=== PATIENT | female | born 1990 | race Caucasian/White ===

== ENCOUNTER 2016-08-30 09:57 | Emergency (ER) | payer BC ==
[~2016-08-30] VITALS: Ht 170.2 cm; Wt 61.7 kg
[2016-08-30 10:10] VITALS: BP 96/60
== END 2016-08-30 11:32 | disposition home or self-care (01) ==
LOC: ER 10:02
DX: O23.41 Unspecified infection of urinary tract in pregnancy, first trimester (principal); O88.211 Thromboembolism in pregnancy, first trimester; J32.0 Chronic maxillary sinusitis; J45.909 Unspecified asthma, uncomplicated; Z3A.08 8 weeks gestation of pregnancy

== ENCOUNTER 2016-10-11 20:24 | Emergency (ER) | payer BC ==
[~2016-10-11] VITALS: Ht 170.2 cm; Wt 62.6 kg
[2016-10-11 20:46] VITALS: BP 109/58
== END 2016-10-11 22:48 | disposition home or self-care (01) ==
LOC: ER 20:26
DX: J32.0 Chronic maxillary sinusitis (principal); J45.909 Unspecified asthma, uncomplicated

== ENCOUNTER 2017-01-09 13:43 | Emergency (ER) | payer BC ==
[~2017-01-09] VITALS: Ht 170.2 cm; Wt 65.8 kg
[2017-01-09 13:55] VITALS: BP 108/72
[2017-01-09 14:16] LABS: Urine Bacteria FEW /hpf (None Seen); Urine Blood Negative /uL (Negative); Urine Mucus FEW (None Seen); Urine Specific Gravity 1.012 (1.001-1.035); Urine WBC 10 /hpf (0 - 5)
[2017-01-09 15:44] LABS: Basophils # (auto) 0.1 uL; Basophils % (auto) 1.1 % (0.0-2.0); Eosinophils # (auto) 0.4 uL; Eosinophils % (auto) 3.5 % (0.0-7.0); Hematocrit 34.8 % (36.0-46.0); Hemoglobin 11.6 g/dL (12.2-16.2); Lymphocytes # (auto) 1.8 uL; Lymphocytes % (auto) 16.5 % (10.0-50.0); Mean Corpuscular Hemoglobin 30.9 pg (28.0-32.0); Mean Corpuscular Hgb Conc. 33.3 g/dL (32.0-36.0); Mean Corpuscular Volume 92.8 fL (80.0-100.0); Monocytes # (auto) 0.6 uL; Monocytes % (auto) 5.5 % (0.0-12.0); Neutrophils # (auto) 7.8 uL; Neutrophils % (auto) 73.4 % (37.0-80.0); Platelet Count (auto) 254 10^3/uL (140-450); Red Blood Cells 3.75 10^6/uL (4.0-5.20); Red Cell Distribution Width 14.1 % (11.8-14.3); White Blood Cell 10.6 10^3/uL (4.4-10.8)
== END 2017-01-09 18:20 | disposition left against medical advice (07) ==
LOC: ER 13:43
DX: R07.89 Other chest pain (principal); R00.2 Palpitations; Z53.21 Procedure and treatment not carried out due to patient leaving prior to being seen by health care provider
CPT/HCPCS: 36415; 81001; 83880; 84443; 85025; 93005

== ENCOUNTER 2020-11-04 13:46 | Emergency (ER) | payer BC ==
[~2020-11-04] VITALS: Ht 170.2 cm; Wt 83.9 kg
[2020-11-04 15:23] LABS: Basophils # (auto) 0.1 10 ^3/uL (0-0.2); Basophils % (auto) 0.5 % (0.0-2.0); Eosinophils # (auto) 0.5 10 ^3/uL (0-0.8); Eosinophils % (auto) 4.4 % (0.0-7.0); Hematocrit 38.7 % (36.0-46.0); Hemoglobin 12.7 g/dL (12.2-16.2); Lymphocytes % (auto) 16.3 % (10.0-50.0); Mean Corpuscular Hemoglobin 29.2 pg (28.0-32.0); Mean Corpuscular Hgb Conc. 32.9 g/dL (32.0-36.0); Monocytes # (auto) 0.5 10 ^3/uL (0-1.3); Monocytes % (auto) 3.9 % (0.0-12.0); Neutrophils % (auto) 74.9 % (37.0-80.0); Red Blood Cells 4.35 10^6/uL (4.0-5.20); Red Cell Distribution Width 13.9 % (11.8-14.3)
[2020-11-04] MEDS ORDERED: PANTOPRAZOLE 40 MG TAB PO ONE (15:30)
[2020-11-04] MEDS ORDERED: metroNIDAZOLE 500 MG TAB PO ONE (15:30)
[2020-11-04 15:40] LABS: BUN/Creatinine Ratio 11.8
[2020-11-04 15:43] LABS: Bilirubin, Total 0.6 mg/dL (0.2-1.0); Total Protein 7.9 g/dL (6.4-8.2)
[2020-11-04 17:20] VITALS: BP 103/58
== END 2020-11-04 17:57 | disposition home or self-care (01) ==
LOC: ER 13:46
DX: K29.70 Gastritis, unspecified, without bleeding (principal); J45.909 Unspecified asthma, uncomplicated
CPT/HCPCS: 36415; 74176; 80053; 83690; 85025

== ENCOUNTER 2020-11-15 23:28 | Inpatient (IN) | payer BC ==
[~2020-11-15] VITALS: Ht 167.6 cm; Wt 85.6 kg
[2020-11-16 00:10] LABS: Basophils # (auto) 0.1 10 ^3/uL (0-0.2); Basophils % (auto) 0.6 % (0.0-2.0); Eosinophils # (auto) 0.4 10 ^3/uL (0-0.8); Eosinophils % (auto) 3.3 % (0.0-7.0); Hemoglobin 10.4 g/dL (12.2-16.2); Lymphocytes # (auto) 1.9 10 ^3/uL (0.4-5.4); Lymphocytes % (auto) 15.6 % (10.0-50.0); Mean Corpuscular Hgb Conc. 33.5 g/dL (32.0-36.0); Mean Corpuscular Volume 89.4 fL (80.0-100.0); Monocytes # (auto) 0.6 10 ^3/uL (0-1.3); Monocytes % (auto) 4.7 % (0.0-12.0); Neutrophils # (auto) 9.1 10 ^3/uL (1.6-8.6); Neutrophils % (auto) 75.8 % (37.0-80.0); Red Blood Cells 3.47 10^6/uL (4.0-5.20); Red Cell Distribution Width 13.2 % (11.8-14.3)
[2020-11-16 00:18] LABS: Calcium 7.8 mg/dL (8.5-10.1); Potassium 4.6 mmol/L (3.5-5.1)
[2020-11-16 00:20] LABS: BUN/Creatinine Ratio 28.2
[2020-11-16 00:23] LABS: Bilirubin, Total 0.3 mg/dL (0.2-1.0); Total Protein 6.2 g/dL (6.4-8.2)
[2020-11-16 00:30] LABS: INR 1.19 (0.9-1.15); Partial Thromboplastin Time 20.6 sec (23.6-33.0)
[2020-11-16 01:36] LABS: Urine Bacteria FEW /hpf (None Seen); Urine Blood 1+ /uL (Negative); Urine Mucus FEW (None Seen); Urine Specific Gravity 1.029 (1.001-1.035); Urine WBC 29 /hpf (0 - 5)
[2020-11-16] MEDS ORDERED: IOHEXOL 300 MG/ML 100ML BOTTLE IJ ONE (01:42)
[2020-11-16] MEDS ORDERED: cefTRIAXone 1GM/50ML D5W 50 ML IV ONE (05:00)
[2020-11-16] MEDS ORDERED: CALCIUM GLUC 1,000mg/50ml-NS 50 ML IV ONE (05:00)
[2020-11-16] MEDS ORDERED: PANTOPRAZOLE 40 MG/10 ML VIAL INJ IV ONE (05:00)
[2020-11-16 05:58] LABS: Amphetamine Screen, Urine NEGATIVE (NEGATIVE); Barbiturate Scree,Urine NEGATIVE (NEGATIVE); Benzodiazephine Screen, Urine NEGATIVE (NEGATIVE); Cannabinoid Screen, Urine NEGATIVE (NEGATIVE); Cocaine Screen, Urine NEGATIVE (NEGATIVE); Opiate Scree,Urine NEGATIVE (NEGATIVE); Phencyclidine Screen, Urine NEGATIVE (NEGATIVE)
[2020-11-16] MEDS ORDERED: ONDANSETRON HCL 4 MG/2 ML VIAL IV PRN (06:30)
[2020-11-16] MEDS ORDERED: HYDROcodone-ACET 5/325MG TAB PO PRN (06:30)
[2020-11-16] MEDS ORDERED: ALBUMIN 25% 50 ML IV ONE (06:30)
[2020-11-16] MEDS: SOD CHL 0.45% 1,000 ML IV SCH (06:57)
[2020-11-16] MEDS ORDERED: NITROGLYCERIN 0.4 MG SL TAB SL PRN (07:00)
[2020-11-16] MEDS ORDERED: MORPHINE SULFATE INJECTION 2 MG/ML SYRG IV PRN (07:00)
[2020-11-16 07:07] LABS: Basophils # (auto) 0 10 ^3/uL (0-0.2); Basophils % (auto) 0.5 % (0.0-2.0); Eosinophils # (auto) 0.4 10 ^3/uL (0-0.8); Eosinophils % (auto) 4.7 % (0.0-7.0); Hematocrit 28.4 % (36.0-46.0); Hemoglobin 9.9 g/dL (12.2-16.2); Lymphocytes # (auto) 1.9 10 ^3/uL (0.4-5.4); Lymphocytes % (auto) 21.5 % (10.0-50.0); Mean Corpuscular Hemoglobin 31.6 pg (28.0-32.0); Mean Corpuscular Hgb Conc. 34.8 g/dL (32.0-36.0); Mean Corpuscular Volume 90.9 fL (80.0-100.0); Monocytes # (auto) 0.4 10 ^3/uL (0-1.3); Monocytes % (auto) 4.5 % (0.0-12.0); Neutrophils % (auto) 68.8 % (37.0-80.0); Nucleated Red Blood Cells % 0.1 %; Red Blood Cells 3.12 10^6/uL (4.0-5.20); Red Cell Distribution Width 13.5 % (11.8-14.3); White Blood Cell 8.8 10^3/uL (4.4-10.8)
[2020-11-16 07:29] LABS: Albumin 2.9 g/dL (3.4-5.0); Calcium 8.3 mg/dL (8.5-10.1); Potassium 4.5 mmol/L (3.5-5.1)
[2020-11-16 07:34] LABS: Bilirubin, Total 0.2 mg/dL (0.2-1.0); Total Protein 6.1 g/dL (6.4-8.2)
[2020-11-16] MEDS: cefTRIAXone 1GM/50ML D5W 50 ML IV SCH (09:08)
[2020-11-16] MEDS ORDERED: PANTOPRAZOLE 40 MG/10 ML VIAL INJ IV SCH (10:00)
[2020-11-16 12:09] VITALS: BP 96/50
[2020-11-16] MEDS: ACETAMINOPHEN 325 MG TAB PO PRN ×2 (12:42→13:45)
[2020-11-16] MEDS ORDERED: PAR20T PO (12:48)
[2020-11-16] MEDS ORDERED: LORA-622 PO (12:48)
[2020-11-16] MEDS ORDERED: TRAZ1TAB12 PO (12:48)
[2020-11-16] MEDS ORDERED: QUET50TA PO (12:48)
[2020-11-16 13:00] VITALS: BP 101/65
[2020-11-16] MEDS ORDERED: LAMO100T44 PO (13:49)
[2020-11-16 17:00] VITALS: BP 102/64
[2020-11-16] MEDS: SUCRALFATE 1 GM/10 ML ORAL SUSP PO SCH ×2 (17:31→21:46)
[2020-11-16] MEDS: traZODone HCL 50 MG TAB PO SCH (21:46)
[2020-11-16] MEDS: PANTOPRAZOLE 40 MG/10 ML VIAL INJ IV SCH (21:47)
[2020-11-16 22:00] VITALS: BP 86/52
[2020-11-17 05:00] VITALS: BP 97/55
[2020-11-17 05:20] LABS: Basophils # (auto) 0 10 ^3/uL (0-0.2); Basophils % (auto) 0.5 % (0.0-2.0); Eosinophils # (auto) 0.6 10 ^3/uL (0-0.8); Eosinophils % (auto) 10.6 % (0.0-7.0); Hematocrit 27.5 % (36.0-46.0); Hemoglobin 9.3 g/dL (12.2-16.2); Lymphocytes # (auto) 1.8 10 ^3/uL (0.4-5.4); Lymphocytes % (auto) 34.1 % (10.0-50.0); Mean Corpuscular Hemoglobin 30.5 pg (28.0-32.0); Mean Corpuscular Hgb Conc. 33.8 g/dL (32.0-36.0); Mean Corpuscular Volume 90.1 fL (80.0-100.0); Monocytes # (auto) 0.3 10 ^3/uL (0-1.3); Monocytes % (auto) 5.5 % (0.0-12.0); Neutrophils # (auto) 2.7 10 ^3/uL (1.6-8.6); Neutrophils % (auto) 49.3 % (37.0-80.0); Nucleated Red Blood Cells % 0.1 %; Red Blood Cells 3.06 10^6/uL (4.0-5.20); Red Cell Distribution Width 13.8 % (11.8-14.3); White Blood Cell 5.4 10^3/uL (4.4-10.8)
[2020-11-17 05:52] LABS: Potassium 4.2 mmol/L (3.5-5.1)
[2020-11-17 05:56] LABS: Albumin 3.1 g/dL (3.4-5.0); BUN/Creatinine Ratio 15.2; Calcium 8.5 mg/dL (8.5-10.1)
[2020-11-17 05:59] LABS: Bilirubin, Total 0.4 mg/dL (0.2-1.0); Total Protein 6.1 g/dL (6.4-8.2)
[2020-11-17] MEDS: SOD CHL 0.45% 1,000 ML IV SCH ×2 (06:13→09:10)
[2020-11-17] MEDS: SUCRALFATE 1 GM/10 ML ORAL SUSP PO SCH ×4 (06:13→21:20)
[2020-11-17] MEDS: PARoxetine 20 MG TAB PO SCH (09:19)
[2020-11-17] MEDS: PANTOPRAZOLE 40 MG/10 ML VIAL INJ IV SCH ×2 (09:19→21:20)
[2020-11-17] MEDS: lamoTRIgine 25 MG TAB PO SCH (09:19)
[2020-11-17] MEDS: cefTRIAXone 1GM/50ML D5W 50 ML IV SCH (09:19)
[2020-11-17] MEDS ORDERED: MIDAZOLAM HCL 5 MG/ML-1ML VIAL ONE (14:05)
[2020-11-17] MEDS ORDERED: diphenhdrAMINE HCL 50 MG/1 ML VL ONE (14:05)
[2020-11-17] MEDS ORDERED: LIDOCAINE VISCOUS 2% 15ML UD ONE ×2 (14:05→16:17)
[2020-11-17] MEDS ORDERED: SODIUM CHLORIDE LOCK 10 ML ONE (14:05)
[2020-11-17] MEDS ORDERED: fentaNYL CITRATE 100 MCG/2 ML VL ONE (14:06)
[2020-11-17] MEDS: MIDAZOLAM HCL 5 MG/ML-1ML VIAL ONE ×3 (17:31→17:38)
[2020-11-17] MEDS: diphenhdrAMINE HCL 50 MG/1 ML VL ONE ×2 (17:31→17:35)
[2020-11-17] MEDS: fentaNYL CITRATE 100 MCG/2 ML VL ONE ×3 (17:31→17:38)
[2020-11-17] MEDS ORDERED: IRON SUCROSE COMPLEX 200 MG in SODIUM CHL 0.9% 100 ML IV ONE (18:00)
[2020-11-17] MEDS ORDERED: SODIUM FERR GLUC 125 MG in NS 100 ML IV ONE (18:00)
[2020-11-17 18:20] VITALS: BP 109/67
[2020-11-17] MEDS: traZODone HCL 50 MG TAB PO SCH (21:20)
[2020-11-17 22:00] VITALS: BP 112/72
[2020-11-18 06:14] VITALS: BP 174/83
[2020-11-18] MEDS: SUCRALFATE 1 GM/10 ML ORAL SUSP PO SCH ×2 (06:20→11:30)
[2020-11-18] MEDS: cefTRIAXone 1GM/50ML D5W 50 ML IV SCH (07:36)
[2020-11-18 09:00] VITALS: BP 98/53
[2020-11-18] MEDS: PANTOPRAZOLE 40 MG/10 ML VIAL INJ IV SCH (09:54)
[2020-11-18] MEDS: PARoxetine 20 MG TAB PO SCH (09:54)
[2020-11-18] MEDS: lamoTRIgine 25 MG TAB PO SCH (09:55)
[2020-11-18] MEDS ORDERED: SUCR1SUS10 PO (10:20)
[2020-11-18] MEDS ORDERED: FERR-7 PO (10:20)
[2020-11-18] MEDS ORDERED: PANT40TA2 PO (10:20)
[2020-11-18 17:40] LABS: % Iron Saturation 21.5 % (15-50)
== END 2020-11-18 12:48 | disposition home or self-care (01) | DRG 378 ==
LOC: EDBD 23:28 → ER 23:28 → OVERFLOW 11-16 06:48 → WEST WING 11-16 10:53
PROVIDERS: ADMIT Nurse Practitioner Family; ATTEND Hospitalist
PROC: 0DB68ZX Excision of Stomach, Via Natural or Artificial Opening Endoscopic, Diagnostic (ICD-10-PCS; 2020-11-17)
PROC: 0DB98ZX Excision of Duodenum, Via Natural or Artificial Opening Endoscopic, Diagnostic (ICD-10-PCS; principal; 2020-11-17 17:21)
DX: K29.01 Acute gastritis with bleeding (principal); N30.01 Acute cystitis with hematuria; Z20.822 Contact with and (suspected) exposure to COVID-19; E83.51 Hypocalcemia; J45.909 Unspecified asthma, uncomplicated; Z87.891 Personal history of nicotine dependence; F32.9 Major depressive disorder, single episode, unspecified; F41.9 Anxiety disorder, unspecified; K44.9 Diaphragmatic hernia without obstruction or gangrene; D64.9 Anemia, unspecified
CPT/HCPCS: 36415; 43239; 74177; 80053; 80307; 81001; 83036; 83540; 83550; 84702; 85025; 85610; 85730; 87086; 87088; 87426; 96365; 96367; 96375; C9113; G0378; J0696; J2250

== ENCOUNTER 2022-04-12 15:41 | Emergency (ER) | payer BC ==
[~2022-04-12] VITALS: Ht 170.2 cm; Wt 84.0 kg
[~2022-04-12 15:41] MED LIST: FERR-7 PO; LAMO100T44 PO; LORA-622 PO; PANT40TA2 PO; PAR20T PO; QUET50TA PO; SUCR1SUS10 PO; TRAZ1TAB12 PO
[2022-04-12 16:31] LABS: Basophils # (auto) 0 10 ^3/uL (0-0.2); Basophils % (auto) 0.2 % (0.0-2.0); Eosinophils # (auto) 0.4 10 ^3/uL (0-0.8); Eosinophils % (auto) 3.5 % (0.0-7.0); Hematocrit 41.4 % (36.0-46.0); Hemoglobin 13.5 g/dL (12.2-16.2); Lymphocytes # (auto) 1.5 10 ^3/uL (0.4-5.4); Lymphocytes % (auto) 13.3 % (10.0-50.0); Mean Corpuscular Hemoglobin 29.6 pg (28.0-32.0); Mean Corpuscular Hgb Conc. 32.7 g/dL (32.0-36.0); Mean Corpuscular Volume 90.7 fL (80.0-100.0); Monocytes # (auto) 0.5 10 ^3/uL (0-1.3); Monocytes % (auto) 4.7 % (0.0-12.0); Neutrophils # (auto) 8.6 10 ^3/uL (1.6-8.6); Neutrophils % (auto) 78.3 % (37.0-80.0); Nucleated Red Blood Cells % 0.1 %; Red Blood Cells 4.56 10^6/uL (4.0-5.20); Red Cell Distribution Width 14.2 % (11.8-14.3)
[2022-04-12 16:40] LABS: Albumin 4.5 g/dL (3.4-5.0); Calcium 9.2 mg/dL (8.5-10.1); Potassium 4.4 mmol/L (3.5-5.1)
[2022-04-12 16:45] LABS: BUN/Creatinine Ratio 10.3; Bilirubin, Total 0.5 mg/dL (0.2-1.0); Total Protein 7.6 g/dL (6.4-8.2)
[2022-04-12 18:42] VITALS: BP 103/67
[2022-04-12 21:41] LABS: Urine Bacteria NONE SEEN /hpf (None Seen); Urine Blood TRACE /uL (Negative); Urine Mucus FEW (None Seen); Urine Specific Gravity 1.016 (1.001-1.035); Urine WBC 4 /hpf (0 - 5)
== END 2022-04-12 18:44 | disposition home or self-care (01) ==
LOC: ER 15:41
DX: R07.89 Other chest pain (principal); J45.909 Unspecified asthma, uncomplicated; Z79.899 Other long term (current) drug therapy
CPT/HCPCS: 36415; 71046; 80053; 81001; 84484; 85025; 93005

== ENCOUNTER → 2023-09-13 | Outpatient (CLI) | payer BC ==
[~2023-09-13] MED LIST changes: -SUCR1SUS10 PO; +SUCR1SUS26 PO
[2023-09-13 09:59] LABS: Basophils # (auto) 0 10 ^3/uL (0-0.2); Basophils % (auto) 0.3 % (0.0-2.0); Eosinophils # (auto) 0.6 10 ^3/uL (0-0.8); Eosinophils % (auto) 9.7 % (0.0-7.0); Hematocrit 40.2 % (36.0-46.0); Hemoglobin 13.6 g/dL (12.2-16.2); Lymphocytes # (auto) 1.5 10 ^3/uL (0.4-5.4); Mean Corpuscular Hemoglobin 30.7 pg (28.0-32.0); Mean Corpuscular Hgb Conc. 33.8 g/dL (32.0-36.0); Monocytes # (auto) 0.4 10 ^3/uL (0-1.3); Monocytes % (auto) 5.6 % (0.0-12.0); Neutrophils # (auto) 3.8 10 ^3/uL (1.6-8.6); Neutrophils % (auto) 60.4 % (37.0-80.0); Red Blood Cells 4.42 10^6/uL (4.0-5.20); Red Cell Distribution Width 13.5 % (11.8-14.3); White Blood Cell 6.3 10^3/uL (4.4-10.8)
[2023-09-13 10:14] LABS: INR 1.09 (0.9-1.15); Prothrombin Time 11.5 sec (9.3-11.8)
[2023-09-13 10:32] LABS: Alanine Aminotransferase 25 U/L (7-40); Alkaline Phosphatase 68 U/L (46-116); Anion Gap 4 (5-15); Aspartate Aminotransferase 11 U/L (13-40); Calcium 10.2 mg/dL (8.5-10.1); Carbon Dioxide 28 mmol/L (20-30); Chloride 106 mmol/L (98-107); Glucose 99 mg/dL (74-106); Potassium 4.6 mmol/L (3.5-5.1); Sodium 138 mmol/L (136-145)
[2023-09-13 10:33] LABS: BUN/Creatinine Ratio 12.2 (10.0-20.0); Blood Urea Nitrogen 10 mg/dL (9-23); LDL Cholesterol 104 mg/dL (< 100); Triglycerides 75 mg/dL (< 150)
[2023-09-13 10:34] LABS: Albumin 4.7 g/dL (3.2-4.8); Cholesterol 155 mg/dL (< 200); HDL Cholesterol 47 mg/dL (40-59)
[2023-09-13 10:35] LABS: Bilirubin, Total 0.3 mg/dL (0.2-1.0); Total Protein 7.1 g/dL (5.7-8.2)
[2023-09-13 10:38] LABS: Urine Bacteria FEW /hpf (None Seen); Urine Blood 2+ /uL (Negative); Urine Clarity Clear (Clear); Urine Color Light-Yellow (Yellow); Urine Protein, UAD Negative (Negative); Urine Specific Gravity 1.021 (1.001-1.035); Urine Urobilinogen Normal (Negative); Urine WBC 23 /hpf (0 - 5); Urine pH 6.5 (5.0-9.0)
== END | disposition home or self-care (01) ==
LOC: LAB 09:44
PROVIDERS: ATTEND Internal Medicine
DX: Z13.1 Encounter for screening for diabetes mellitus (principal); Z00.01 Encounter for general adult medical examination with abnormal findings; G43.109 Migraine with aura, not intractable, without status migrainosus; R61 Generalized hyperhidrosis; R94.4 Abnormal results of kidney function studies; D50.0 Iron deficiency anemia secondary to blood loss (chronic); R79.89 Other specified abnormal findings of blood chemistry
CPT/HCPCS: 36415; 80053; 80061; 81001; 83036; 84439; 84443; 85025; 85610; 85730

== ENCOUNTER 2024-01-16 08:52 | Inpatient (IN) | payer BC ==
[~2024-01-16] VITALS: Ht 172.7 cm; Wt 82.1 kg
[~2024-01-16 08:52] MED LIST changes: +NITR-87 PO
[2024-01-16 09:25] VITALS: PULSE 107; RESP 18; O2SAT 98
--- NOTE | 2024-01-16 09:41 | ED.PDOC ---
GI ASSESSMENT HPI Comments 33-year-old female presents to the ED with a chief complaint of rectal bleeding x 2 days. Patient reports that her stool is black in color, soft in texture. Patient is also complaining of nausea and vomiting with bright red blood. Denies any pain at this time. Patient mentions that she drank alcohol this weekend. Chief Complaint: GI Bleed Time Seen by MD: 09:30 Primary Care Provider: FELICIA Carlos Notes: Medications, Allergies Allergies: Coded Allergies: NO KNOWN ALLERGIES (Unverified , 12/29/15) Home Meds Active Scripts Nitrofurantoin Monohydrate Mac (Macrobid) 100 Mg Cap, 100 MG PO BID for 7 Days, #14 CAP Prov:FLAQUITO PALENCIA 10/05/23 Ferrous Sulfate (Iron) 325 Mg Tab, 325 MG PO MWF, #60 TAB Prov:JOHN HOUGH MD 11/18/20 Sucralfate (CARAFATE SUSP) 1 Gm/10 Ml Ss, 10 ML PO QID, #1200 ML 3 Refills Prov:JOHN HOUGH MD 11/18/20 Pantoprazole Sodium Sesquihydr (Protonix) 40 Mg Tab, 40 MG PO BID, #90 TAB Prov:JOHN HOUGH MD 11/18/20 Reported Medications Lamotrigine (Lamotrigine) 100 Mg Tab, 0.5 TAB PO DAILY, #30 TAB 11/16/20 Quetiapine Fumerate (Seroquel) 50 Mg Tab, 0.5 TAB PO HS, #30 TAB 2 Refills 11/16/20 Loratadine (Claritin) 10 Mg Tab, 1 TAB PO PRN, #30 TAB 5 Refills 11/16/20 Paroxetine (PAXIL TABLET) 20 Mg Tb, 1 TAB PO DAILY, #30 TAB 5 Refills 11/16/20 Trazodone Hcl (Trazodone Hcl) 150 Mg Tab, 1 TAB PO HS, #30 TAB 1 Refill 11/16/20 Information Source: Patient Mode of Arrival: Ambulatory Timing: Days Duration: Since onset Prehospital treatment: None Quality: None Vomitus: Bloody Stool: Loose, Black Severity: Moderate Recent: None Recent Hx of: Ulcer Disease Pain Location: Epigastric Past Medical History PAST MEDICAL HISTORY: Anxiety, Asthma, Depression, PUD Surgical History: Denies all surgeries FABRICATION TECHNICIAN History: No Pertinent FABRICATION TECHNICIAN History Family History Family History: No family hx of Cancer, No family hx of Stroke Social History Smoker: Non-Smoker Alcohol: Occasionally Drugs: Denies Drug Use Lives In: Home Constitutional: denies: chills, diaphoresis, fatigue, fever, malaise, sweats, weakness, others EENTM: denies: blurred vision, double vision, ear bleeding, ear discharge, ear drainage, ear pain, ear ringing, eye pain, eye redness, hearing loss, mouth pain, mouth swelling, nasal discharge, nose bleeding, nose congestion, nose pain, photophobia, tearing, throat pain, throat swelling, voice changes, others Respiratory: denies: cough, hemoptysis, orthopnea, SOB at rest, shortness of breath, SOB with excertion, stridor, wheezing, others Cardiovascular: denies: chest pain, dizzy spells, diaphoresis, Dyspnea on exertion, edema, irregular heart beat, left arm pain, lightheadedness, palpitations, PND, syncope, others Gastrointestinal: reports: melena, nausea, vomiting; denies: abdomen distended, abdominal pain, blood streaked bowels, constipated, diarrhea, dysphagia, difficulty swallowing, hematemesis, poor appetite, poor fluid intake, rectal bleeding, rectal pain, others Genitourinary: denies: abnormal vagina bleeding, burning, dyspareunia, dysuria, flank pain, frequency, hematuria, incontinence, pain, , vagina discharge, urgency, others Neurological: denies: dizziness, fainting, headache, left sided numbness, left sided weakness, numbness, paresthesia, pre-existing deficit, right sided numbne ss, right sided weakness, seizure, speech problems, tingling, tremors, weakness, others Musculoskeletal: denies: back pain, gout, joint pain, joint swelling, muscle pain, muscle stiffness, neck pain, others Integumetry: denies: bruises, change in color, change in hair/nails, dryness, laceration, lesions, lumps, rash, wounds, others Allergic/Immunocompromised: denies: Difficulty Healing, Frequent Infections, Hives, Itching, others Hematologic/Lymphatic: denies: anemia, blood clots, easy bleeding, easy bruising, swollen glands, others Endocrine: denies: excessive hunger, excessive sweating, excessive thirst, excessive urination, flushing, intolerance to cold, intolerance to heat, unexplained weight gain, unexplained weight loss, others Psychiatric: denies: anxiety, bipolar disorder, depression, hopeless, panic disorder, schizophrenia, sleepless, suicidal, others All Other Systems: Reviewed and Negative Physical Exam General Appearance: Mild Distress, Normal HEENT: Normal ENT Inspection, Pale Conjuntivae (L), Pale Conjuntivae (R), PERRL/EOMI, Pharynx Normal, TMs Normal Neck: Full Range of Motion, Non-Tender, Normal, Normal Inspection Respiratory: Chest Non-Tender, Lungs Clear, No Accessory Muscle Use, No Respiratory Distress, Normal Breath Sounds Cardiovascular: No Edema, No JVD, No Murmur, No Gallop, Normal Peripheral Pulses, Regular Rate/Rhythm Breast Exam: Deferred Gastrointestinal: Epigastric, No Organomegaly, No Pulsatile Mass, Normal Bowel Sounds, Soft, Tenderness Genitalia: Deferred Pelvic: Deferred Rectal: Deferred Extremities: No calf tenderness, Normal capillary refill, Normal inspection, Normal range of motion, Non-tender, No pedal edema Musculoskeletal : Apperance: Normal Neurologic: Alert, duty engineer II-XII nml as Tested, No Motor Deficits, Normal Affect, Normal Mood, No Sensory Deficits Cerebellar Function: Normal Reflexes: Normal Skin: Dry, Normal Color, Warm Peripheral Pulses: 1+ carotid (R), 1+ carotid (L) Lymphatic: No Adenopathy Was a procedure done? Was a procedure done?: No GI differential Dx Differential Diagnosis: Gastritis/PUD, Gastroenteritis, GI hemorrhage, Inflammatory BD, Pancreatitis, UTI, Dehydration, Diabetes/ DKA, Drug toxicity, Electrolyte Imbalance, Hypovolemia, Anemia X-Ray, Labs, Meds, VS Vital Signs Date Time Temp Pulse Resp B/P (MAP) Pulse Ox O2 Delivery O2 Flow Rate FiO2 01/16/24 13:00 90 16 105/55 (72) 99 01/16/24 11:00 87 16 106/73 (84) 98 01/16/24 09:47 86 18 97 Room Air* 0 21 01/16/24 09:25 107 18 98 Room Air* 0 21 01/16/24 09:18 107 18 98 Room Air 01/16/24 09:18 98.3 107 18 107/72 (84) 98 98.3 11/4/24 09:14 99.0 107 16 158/85 (109) 98 Lab Test 01/16/24 13:08 01/16/24 09:22 Range/Units Prothrombin Time 12.4 H 9.3-11.8 sec Prothrombin Time INR 1.18 H 0.9-1.15 Activated Partial Thromboplast Time 25.5 24.5-34.5 SEC Magnesium Level 1.9 1.6-2.6 mg/dL Lipase 28 12-53 U/L White Blood Count 10.9 H 4.4-10.8 10^3/uL Red Blood Count 3.91 L 4.0-5.20 10^6/uL Hemoglobin 12.1 L 12.2-16.2 g/dL Hematocrit 35.9 L 36.0-46.0 % Mean Corpuscular Volume 91.7 80.0-100.0 fL Mean Corpuscular Hemoglobin 30.9 28.0-32.0 pg Mean Corpuscular Hemoglobin Concent 33.7 32.0-36.0 g/dL Red Cell Distribution Width 13.2 11.8-14.3 % Platelet Count 295 140-450 10^3/uL Mean Platelet Volume 7.9 6.9-10.8 fL Neutrophils (%) (Auto) 81.7 H 37.0-80.0 % Lymphocytes (%) (Auto) 13.1 10.0-50.0 % Monocytes (%) (Auto) 3.0 0.0-12.0 % Eosinophils (%) (Auto) 1.8 0.0-7.0 % Basophils (%) (Auto) 0.4 0.0-2.0 % Neutrophils # (Auto) 8.9 H 1.6-8.6 10 ^3/uL Lymphocytes # (Auto) 1.4 0.4-5.4 10 ^3/uL Monocytes # (Auto) 0.3 0-1.3 10 ^3/uL Eosinophils # (Auto) 0.2 0-0.8 10 ^3/uL Basophils # (Auto) 0 0-0.2 10 ^3/uL Nucleated Red Blood Cells 0.0 % Sodium Level 136 136-145 mmol/L Potassium Level 3.9 3.5-5.1 mmol/L Chloride Level 104 98-107 mmol/L Carbon Dioxide Level 26 20-31 mmol/L Anion Gap 6 5-15 Blood Urea Nitrogen 20 9-23 mg/dL Creatinine 0.73 0.550-1.02 mg/dL Glomerular Filtration Rate Calc 111 >90 mL/min BUN/Creatinine Ratio 27.4 H 10.0-20.0 Serum Glucose 92 74-106 mg/dL Calcium Level 9.7 8.7-10.4 mg/dL Total Bilirubin 0.4 0.2-1.0 mg/dL Aspartate Amino Transferase (AST) 35 13-40 U/L Alanine Aminotransferase (ALT) 60 H 7-40 U/L Alkaline Phosphatase 73 46-116 U/L Total Protein 7.9 5.7-8.2 g/dL Albumin 5.0 H 3.2-4.8 g/dL Beta HCG, Quantitative 0.8 L 1.5-4.2 mIU/mL Current Medications Medications (Trade) Dose Ordered Sig/Ed Route Start Time Stop Time Status Last Admin Pantoprazole Sodium (Protonix) 40 mg ONCE ONCE IV 01/16/24 11:00 01/16/24 11:01 DC 01/16/24 11:05 Sodium Chloride 1,000 ml @ 1,000 mls/hr Q1H ONCE IVB 01/16/24 11:00 01/16/24 11:59 DC 01/16/24 11:05 Octreotide Acetate 100 mcg/ Sodium Chloride 51 ml @ 204 mls/hr ONCE ONCE IV 01/16/24 11:00 01/16/24 11:14 DC 01/16/24 11:15 Sodium Chloride 500 ml @ 500 mls/hr Q1H ONCE IVB 01/16/24 13:00 01/16/24 13:59 DC 01/16/24 13:04 Sodium Chloride 1,000 ml @ 150 mls/hr Q6H40M ONCE IV 01/16/24 13:00 01/16/24 19:39 01/16/24 14:22 Pantoprazole Sodium 50 ml @ 10 mls/hr Q5H ONCE IV 01/16/24 13:00 01/16/24 17:59 01/16/24 13:05 X-Ray, Labs, Meds, VS Comment Course in the emergency department eventful patient came in because of GI bleeding for the past two days rectally two melena with nausea and vomiting Blood pressure is 158/85 and down to 107/72 heart rate 107 Chest x-ray normal EKG shows normal sinus rhythm at 95 CBC 50028 with 81.7% and 12 /36 H and H Urine pending Magnesium 1.9 INR 1.18 Beta hCG normal Patient will be admitted for further Time of 1ST Reevaluation: 10:00 Reevaluation 1ST: Unchanged Time of 2ND Reevaluation: 10:44 Reevaluation 2ND: Unchanged Patient Education/Counseling: Diagnosis, Treatment, Prognosis, Need For Follow Up Family Education/Counseling: Diagnosis, Treatment, Prognosis, Need For Follow Up, Other ( at bedside) Departure 1 Departure Time of Disposition: 15:19 Impression: Primary Impression: Abdominal pain Qualified Codes: R10.13 - Epigastric pain Additional Impression: GIB (gastrointestinal bleeding) Qualified Codes: K92.1 - Melena Disposition: ADMITTED INPATIENT Admit to: [facility] Condition: Fair Critical Care Note Critical Care Time?: No Stability Stability form required: Yes Unstable for transfer: Telemetry monitoring, Requires medication (Requires Med for stabilization) Heart Score Heart Score: Heart Score Response (Comments) Value History N/A 0 EKG Normal 0 Age <45 0 Risk Factors No known risk factors 0 Troponin N/A 0 Total 0 I personally scribed for JULITA UMAÑA MD ([email or web address]) on 01/16/24 at 09:41. Electronically submitted by Tiherno Matute ([email or web address]). JULITA UMAÑA MD Jan 16, 2024 09:41
[2024-01-16 09:47] VITALS: PULSE 86; RESP 18; O2SAT 97
[2024-01-16 09:54] LABS: Alanine Aminotransferase 60 U/L (7-40); Alkaline Phosphatase 73 U/L (46-116); Anion Gap 6 (5-15); Aspartate Aminotransferase 35 U/L (13-40); BUN/Creatinine Ratio 27.4 (10.0-20.0); Bilirubin, Total 0.4 mg/dL (0.2-1.0); Blood Urea Nitrogen 20 mg/dL (9-23); Calcium 9.7 mg/dL (8.7-10.4); Carbon Dioxide 26 mmol/L (20-31); Chloride 104 mmol/L (98-107); Glucose 92 mg/dL (74-106); Potassium 3.9 mmol/L (3.5-5.1); Sodium 136 mmol/L (136-145); Total Protein 7.9 g/dL (5.7-8.2)
[2024-01-16 10:04] LABS: Basophils # (auto) 0 10 ^3/uL (0-0.2); Basophils % (auto) 0.4 % (0.0-2.0); Eosinophils # (auto) 0.2 10 ^3/uL (0-0.8); Eosinophils % (auto) 1.8 % (0.0-7.0); Hematocrit 35.9 % (36.0-46.0); Hemoglobin 12.1 g/dL (12.2-16.2); Lymphocytes # (auto) 1.4 10 ^3/uL (0.4-5.4); Lymphocytes % (auto) 13.1 % (10.0-50.0); Mean Corpuscular Hemoglobin 30.9 pg (28.0-32.0); Mean Corpuscular Hgb Conc. 33.7 g/dL (32.0-36.0); Mean Corpuscular Volume 91.7 fL (80.0-100.0); Monocytes # (auto) 0.3 10 ^3/uL (0-1.3); Neutrophils # (auto) 8.9 10 ^3/uL (1.6-8.6); Neutrophils % (auto) 81.7 % (37.0-80.0); Platelet Count (auto) 295 10^3/uL (140-450); Red Blood Cells 3.91 10^6/uL (4.0-5.20); Red Cell Distribution Width 13.2 % (11.8-14.3); White Blood Cell 10.9 10^3/uL (4.4-10.8)
[2024-01-16] MEDS: SODIUM CHLORIDE 0.9% 1,000 ML IVB ONE (11:05)
[2024-01-16] MEDS: PANTOPRAZOLE 40 MG/10 ML VIAL INJ IV ONE (11:05)
[2024-01-16] MEDS: OCTREOTIDE ACETATE 100 MCG in SODIUM CHL 0.9% 50 ML IV ONE (11:15)
[2024-01-16] MEDS: SODIUM CHLORIDE 0.9% 500 ML IVB ONE (13:04)
[2024-01-16] MEDS: PANTOPRAZOLE 40mg/50ML NS AE 50 ML IV ONE (13:05)
[2024-01-16 13:35] LABS: Magnesium 1.9 mg/dL (1.6-2.6)
--- NOTE | 2024-01-16 13:39 | DVH ---
CHEST RADIOGRAPH Indication:gi bleding Technique: Frontal and lateral view of the chest was obtained Comparison: CHEST TWO VIEWS ROUTINE on DOS: 04/12/22, CXR2 on DOS: 04/12/22 FINDINGS: Lines and Tubes: None Lungs: Clear Pleura: No effusion. No pneumothorax. Cardiomediastinal contours: Unremarkable Bones: Unremarkable IMPRESSION: No evidence of acute disease.
[2024-01-16 13:42] LABS: INR 1.18 (0.9-1.15); Partial Thromboplastin Time 25.5 SEC (24.5-34.5); Prothrombin Time 12.4 sec (9.3-11.8)
[2024-01-16] MEDS: SODIUM CHLORIDE 0.9% 1,000 ML IV ONE (14:22)
[2024-01-16] MEDS ORDERED: PARO-181 PO (16:31)
--- NOTE | 2024-01-16 16:32 | DVHHP2 ---
History of Present Illness Reason for Visit: GI bleed History of Present Illness 33-year-old female presented to the ED with chief complaint of rectal bleeding x2 days. Patient states that her stools were black in color, soft in texture. Patient states she also had nausea and vomiting with dark colored coffee-ground emesis. Patient states she did not see any stephanie blood. Patient does mentioned that she drank alcohol this weekend. Patient has been hospitalized 3 times for multiple stomach ulcers, her most recent was in 2020 where they found 7 ulcers on EGD. Patient does not take any home medications for stomach ulcers. Patient denies chest pain, headache, dizziness, diaphoresis, shortness of breath, abdominal pain, fever, or chills endorsed by the patient. Patient was admitted for further evaluation medical management. Past Medical History Anxiety/depression, insomnia, peptic ulcer disease Past Surgical History Denies surgeries Family History Reviewed noncontributory to the management of this case Smoke: No ALCOHOL: occassional Drugs: None Lives: with Family Review of Systems Constitutional: No: Fever, Chills, Sweats, Weakness, Malaise, Other Eyes: No: Pain, Vision change, Conjunctivae inflammation, Eyelid inflammation, Other, Redness ENT: No: Ear pain, Ear discharge, Nose pain, Nose discharge, Nose congestion, Mouth pain, Mouth swelling, Throat pain, Throat swelling, Other Respiratory: No: Cough, Dry, Shortness of breath, SOB with excertion, Wheezing, Hemoptysis, Pleuritic Pain, Sputum, Wheezing, Other Cardiovascular: No: Chest Pain, Palpitations, Orthopnea, Paroxysmal Noc. Dyspnea, Edema, Lt Headedness, Other Gastrointestinal: Nausea, Melena; No: Vomiting, Abdominal Pain, Diarrhea, Constipation, Hematochezia, Other Genitourinary: No Dysuria, No Frequency, No Incontinence, No Hematuria, No Retention, No Other Musculoskeletal: No: other, neck pain, shoulder pain, arm pain, back pain, hand pain, leg pain, foot pain Skin: No: Rash, Lesions, Jaundice, Bruising, Other Neurological: No: Weakness, Numbness, Incoordination, Change in speech, Confusion, Seizures, Other Allergies: Coded Allergies: NO KNOWN ALLERGIES (Unverified , 12/29/15) Medications Current Medications Medications Dose Ordered Sig/Ed Route Start Time Stop Time Status Last Admin Dose Admin Acetaminophen/ Hydrocodone Bitart 1 tab Q4HP PRN PO 01/16/24 15:45 Ondansetron HCl 4 mg Q4HP PRN IV 01/16/24 15:45 Morphine Sulfate 1 mg Q4HPRN PRN IV 01/16/24 15:45 Pantoprazole Sodium 40 mg DAILY IV 01/17/24 10:00 UNV Exam Vital Signs Vital Signs Date Time Temp Pulse Resp B/P (MAP) Pulse Ox O2 Delivery O2 Flow Rate FiO2 01/16/24 13:00 90 16 105/55 (72) 99 01/16/24 09:47 Room Air* 0 21 01/16/24 09:18 98.3 98.3 General Appearance: Alert, Oriented X3, Cooperative, No acute distress HEENT: Atraumatic, PERRLA, EOMI, Mucous membr. moist/pink Respiratory: Clear to auscultation, Normal air movement Cardiovascular: Regular rate, Normal S1, Normal S2, No murmurs Abdominal: Normal bowel sounds, Soft, No tenderness, No hepatospenomegaly, No m asses, Other (Occasional nausea) Extremities: No clubbing, No cyanosis, No edema, Normal pulses, No tender ness/swelling Skin: No rashes, No breakdown, No significant lesion Neuro: Normal gait, Normal speech, Strength at 5/5 X4 ext, Normal tone, Sensation intact, Cranial nerves 3-12 NL, Reflexes 2+ Psych/Mental Status: Mental status NL, Mood NL Labs/Xrays Labs, imaging and ED notes reviewed Labs Test 01/16/24 13:08 01/16/24 09:22 Range/Units Prothrombin Time 12.4 H 9.3-11.8 sec Prothrombin Time INR 1.18 H 0.9-1.15 Activated Partial Thromboplast Time 25.5 24.5-34.5 SEC Magnesium Level 1.9 1.6-2.6 mg/dL Lipase 28 12-53 U/L White Blood Count 10.9 H 4.4-10.8 10^3/uL Red Blood Count 3.91 L 4.0-5.20 10^6/uL Hemoglobin 12.1 L 12.2-16.2 g/dL Hematocrit 35.9 L 36.0-46.0 % Mean Corpuscular Volume 91.7 80.0-100.0 fL Mean Corpuscular Hemoglobin 30.9 28.0-32.0 pg Mean Corpuscular Hemoglobin Concent 33.7 32.0-36.0 g/dL Red Cell Distribution Width 13.2 11.8-14.3 % Platelet Count 295 140-450 10^3/uL Mean Platelet Volume 7.9 6.9-10.8 fL Neutrophils (%) (Auto) 81.7 H 37.0-80.0 % Lymphocytes (%) (Auto) 13.1 10.0-50.0 % Monocytes (%) (Auto) 3.0 0.0-12.0 % Eosinophils (%) (Auto) 1.8 0.0-7.0 % Basophils (%) (Auto) 0.4 0.0-2.0 % Neutrophils # (Auto) 8.9 H 1.6-8.6 10 ^3/uL Lymphocytes # (Auto) 1.4 0.4-5.4 10 ^3/uL Monocytes # (Auto) 0.3 0-1.3 10 ^3/uL Eosinophils # (Auto) 0.2 0-0.8 10 ^3/uL Basophils # (Auto) 0 0-0.2 10 ^3/uL Nucleated Red Blood Cells 0.0 % Sodium Level 136 136-145 mmol/L Potassium Level 3.9 3.5-5.1 mmol/L Chloride Level 104 98-107 mmol/L Carbon Dioxide Level 26 20-31 mmol/L Anion Gap 6 5-15 Blood Urea Nitrogen 20 9-23 mg/dL Creatinine 0.73 0.550-1.02 mg/dL Glomerular Filtration Rate Calc 111 >90 mL/min BUN/Creatinine Ratio 27.4 H 10.0-20.0 Serum Glucose 92 74-106 mg/dL Calcium Level 9.7 8.7-10.4 mg/dL Total Bilirubin 0.4 0.2-1.0 mg/dL Aspartate Amino Transferase (AST) 35 13-40 U/L Alanine Aminotransferase (ALT) 60 H 7-40 U/L Alkaline Phosphatase 73 46-116 U/L Total Protein 7.9 5.7-8.2 g/dL Albumin 5.0 H 3.2-4.8 g/dL Beta HCG, Quantitative 0.8 L 1.5-4.2 mIU/mL Assessment/Plan Assessment/Plan GI bleed, with history of PUD Admit to medical/surgical Consult GI Started on Protonix and Carafate Monitor H&H Insomnia Continue home medication Depression/anxiety Continue home meds FEN/PPX GI prophylaxis-Protonix VTE prophylaxis not indicated Clear liquid diet Plan discussed with: Patient My Orders Orders - VELVET DOBSON Procedure Category Date Status Time Admit ADMIT 01/16/24 Transmitted 15:43 Code Status CODE 01/16/24 Transmitted 15:43 Vital Signs TONYA 01/16/24 In Process 15:43 Review Orders With [facility] 01/16/24 In Process Adm.Md 15:43 Up Ad Lois TONYA 01/16/24 In Process 15:43 Notify Md Of Changes [facility] 01/16/24 In Process From Base 15:43 Advance Directive TONYA 01/16/24 In Process 15:43 Basic Metabolic Panel LAB 01/17/24 Verified 04:00 Complete Blood Count LAB 01/17/24 Verified 04:00 Patient Condition ORDERS 01/16/24 Transmitted 15:43 Allergies TONYA 01/16/24 In Process 15:43 Hydrocodone-Acet PHA 01/16/24 In Process 5/325mg Tab ([place] 15:45 Ondansetron Hcl PHA 01/16/24 In Process (Zofran) 15:45 Morphine Sulfate PHA 01/16/24 In Process Injection 15:45 Sequential TONYA 01/16/24 In Process Compression Device * Gi [facility] Career Development Counselor CONS 01/16/24 Transmitted 15:45 Clear Liq Diet DIET 01/16/24 Transmitted Dinner Pantoprazole PHA 01/17/24 Logged (Protonix) 10:00 Date of Service: Jan 16, 2024 Billing Provider: VELVET DOBSON Common Visit Codes: [id number] INP/OBS CARE (HIGH) VELVET DOBSON Jan 16, 2024 16:32
[2024-01-16 18:00] LABS: Urine Bacteria None Seen /hpf (None Seen)
[2024-01-16] MEDS: ONDANSETRON HCL 4 MG/2 ML VIAL IV PRN (18:03)
[2024-01-16] MEDS: MORPHINE SULFATE INJ 2 MG/ml SYRG IV PRN (18:04)
[2024-01-16] MEDS: SUCRALFATE 1 GM/10 ML ORAL SUSP PO SCH (18:05)
[2024-01-16 18:11] LABS: Urine Blood 1+ /uL (Negative); Urine Clarity Clear (Clear); Urine Color Light-Yellow (Yellow); Urine Protein, UAD Negative (Negative); Urine Specific Gravity 1.021 (1.001-1.035); Urine Urobilinogen Normal (Negative); Urine WBC 1 /hpf (0 - 5); Urine pH 5.5 (5.0-9.0)
[2024-01-16 19:35] VITALS: PULSE 100; RESP 15; O2SAT 98
[2024-01-16 21:00] VITALS: BP 101/58; PULSE 97; RESP 19; TEMP 97.9; O2SAT 98
[2024-01-16] MEDS: HYDROcodone-ACET 5/325MG TAB PO PRN (21:46)
[2024-01-16] MEDS: traZODone HCL 50 MG TAB PO SCH (21:48)
[2024-01-16 22:57] VITALS: RESP 18; O2SAT 98
[2024-01-17] VITALS (7 sets, daily range): BP systolic 91–105; BP diastolic 39–59; PULSE 87–98; RESP 18–20; TEMP 97.7–98.4; O2SAT 96–99
[2024-01-17 06:04] LABS: Basophils # (auto) 0 10 ^3/uL (0-0.2); Basophils % (auto) 0.2 % (0.0-2.0); Eosinophils # (auto) 0.2 10 ^3/uL (0-0.8); Hematocrit 26.8 % (36.0-46.0); Hemoglobin 8.9 g/dL (12.2-16.2); Lymphocytes # (auto) 1.9 10 ^3/uL (0.4-5.4); Lymphocytes % (auto) 23.9 % (10.0-50.0); Mean Corpuscular Hgb Conc. 33.1 g/dL (32.0-36.0); Mean Corpuscular Volume 93.6 fL (80.0-100.0); Monocytes # (auto) 0.3 10 ^3/uL (0-1.3); Monocytes % (auto) 4.2 % (0.0-12.0); Neutrophils # (auto) 5.4 10 ^3/uL (1.6-8.6); Neutrophils % (auto) 68.7 % (37.0-80.0); Nucleated Red Blood Cells % 0.1 %; Platelet Count (auto) 233 10^3/uL (140-450); Red Blood Cells 2.86 10^6/uL (4.0-5.20); Red Cell Distribution Width 13.3 % (11.8-14.3); White Blood Cell 7.9 10^3/uL (4.4-10.8)
[2024-01-17 06:07] LABS: Chloride 111 mmol/L (98-107); Potassium 4.3 mmol/L (3.5-5.1); Sodium 141 mmol/L (136-145)
[2024-01-17 06:08] LABS: Anion Gap 3 (5-15); Calcium 8.2 mg/dL (8.7-10.4); Carbon Dioxide 27 mmol/L (20-31)
[2024-01-17 06:14] LABS: BUN/Creatinine Ratio 13.2 (10.0-20.0); Glucose 90 mg/dL (74-106)
[2024-01-17 06:15] LABS: Blood Urea Nitrogen 9 mg/dL (9-23)
[2024-01-17] MEDS: PANTOPRAZOLE 40 MG/10 ML VIAL INJ IV SCH (08:51)
--- NOTE | 2024-01-17 12:59 | DVH ---
CT ABDOMEN AND PELVIS WITHOUT CONTRAST CLINICAL HISTORY: R/O PANCREATIC MASS TECHNIQUE: Multidetector CT of the abdomen was performed from lung bases to pubic symphysis. Imaging was performed without IV contrast. Axial, coronal and sagittal multiplanar reformats were obtained fr om the axial data set by the technologist. Radiation optimization: All CT scans at this facility use at least one of these dose optimization salbador hniques: automated exposure control mA and/or kV adjustment per patient size (includes targeted exam s where dose is matched to clinical indication) or iterative reconstruction. Radiation Dose Information: CT Dose: CTDI volume is 11.97 mGy. Dose-length product is 638.68 mGy*cm Comparison: CT CT AB PEL WO CON-NO ORAL OR IV on DOS: 10/05/23, CT ABD PELVIS WO CONTRAST on DOS: 11/04 FINDINGS: [Findings] Evaluation of the abdominal viscera is limited without intravenous contrast. The liver, gallbladder, pancreas, kidneys, adrenal glands, and spleen appear within normal limits. There is no gross evidence of abdominal lymphadenopathy. There is no free fluid or free air. The stomach grossly appears unremarkable. The small and large bowel loops demonstrate normal caliber. There are scattered diverticula in the colon without evidence of acute diverticulitis. The abdominal aorta and IVC appear within normal limits. The bladder is decompressed limiting evaluation. Redemonstrated are tubal ligation clips in the pelvi s. Uterus is not seen with certainty on the current study. There is no evidence of a pelvic mass or l ymphadenopathy. There is no free fluid collection. Lung bases are clear. There is no acute osseous abnormality. There is a small fat containing umbilical hernia. IMPRESSION: 1. There is no acute process in the abdomen and pelvis.. HS:Y
--- NOTE | 2024-01-17 13:31 | ECG ---
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
--- NOTE | 2024-01-17 14:07 | DVHPN2 ---
Subjective 33-year-old female with past medical history of PUD admitted for GI bleed. Patient reported having melena and coffee-ground emesis starting on Tuesday. Patient reported was on a cruise and has been binge drinking, not daily drinker, no prior withdrawal. Patient had prior episode of GI bleed in 2020, received EGD and found 7 peptic ulcer. Patient is seen by me during rounds today Slight hemoglobin drop, GI consulted, patient on full liquid diet, slightly elevated PT with normal PTT, given p.o. vitamin K, patient with easy bruising, however no family history of bleeding disorder or prior episode of hemarthrosis. Reviewed: H&P Changes from previous H/P or p: No Changes Eyes: No Pain, No Vision change, No Conjunctivae inflammation, No Eyelid inflammation, No Other, No Redness ENT: No Ear pain, No Ear discharge, No Nose pain, No Nose discharge, No Nose congestion, No Mouth pain, No Mouth swelling, No Throat pain, No Throat swelling, No Other Cardiovascular: No Chest Pain, No Palpitations, No Orthopnea, No Paroxysmal Noc. Dyspnea, No Edema, No Lt Headedness, No Other Respiratory: No Cough, No Dry, No Shortness of breath, No SOB with excertion, No Wheezing, No Hemoptysis, No Pleuritic Pain, No Sputum, No Other Gastrointestinal: Nausea; No Vomiting, No Abdominal Pain, No Diarrhea, No Constipation; Melena; No Hematochezia, No Other Genitourinary: No Dysuria, No Frequency, No Incontinence, No Hematuria, No Retention, No Other Musculoskeletal: No other, No neck pain, No shoulder pain, No arm pain, No back pain, No hand pain, No leg pain, No foot pain Skin: No Rash, No Lesions, No Jaundice, No Bruising, No Other Objective Vitals Vital Signs Date Time Temp Pulse Resp B/P (MAP) Pulse Ox O2 Delivery O2 Flow Rate FiO2 01/17/24 08:30 97.7 91 18 95/53 (67) 98 97.7 01/16/24 22:57 Room Air* 0 21 Intake/Output Intake and Output 01/17/24 07:00 Intake Total 2691 ml Balance 2691 ml Intake Oral 200 ml IV Total 2491 ml Exam Alert, oriented x3 PERRLA No JVD Clear breath sounds bilaterally S1-S2 regular rate and rhythm no murmur Abdomen soft nontender, no hepatomegaly Equal strength bilaterally on upper and lower extremities No lower extremity edema ERIKA deferred Some skin bruises, different age, per patient with no prior trauma Medications Current Medications Medications Dose Ordered Sig/Ed Route Start Time Stop Time Status Last Admin Dose Admin Acetaminophen/ Hydrocodone Bitart 1 tab Q4HP PRN PO 01/16/24 15:45 01/17/24 08:51 1 TAB Ondansetron HCl 4 mg Q4HP PRN IV 01/16/24 15:45 01/16/24 18:03 4 MG Morphine Sulfate 1 mg Q4HPRN PRN IV 01/16/24 15:45 01/16/24 18:04 1 MG Pantoprazole Sodium 40 mg DAILY IV 01/17/24 10:00 01/17/24 08:51 40 MG Sucralfate 1 gm QID PO 01/16/24 18:00 01/17/24 11:52 1 GM Trazodone HCl 150 mg HS PO 01/16/24 22:00 01/16/24 21:48 150 MG Laboratory Results Laboratory Tests 01/17/24 05:00 Chemistry Test 01/17/24 05:00 Calcium Level 8.2 mg/dL (8.7-10.4) L Urinalysis Test 01/16/24 17:58 Urine Color Light-yellow (Yellow) Urine Clarity Clear (Clear) Urine pH 5.5 (5.0-9.0) Urine Specific [place] 1.021 (1.001-1.035) Urine Protein Negative (Negative) Urine Ketones 2+ (Negative) H Urine Blood 1+ /uL (Negative) H Urine Nitrite Negative (Negative) Urine Bilirubin Negative (Negative) Urine Urobilinogen Normal mg/dL (Negative) Urine Leukocyte Esterase Negative /uL (Negative) Urine RBC 7 /hpf (0 - 4) Urine WBC 1 /hpf (0 - 5) Urine Squamous Epithelial Cells Few /hpf (<5) Urine Bacteria None seen /hpf (None Seen) Urine Glucose Normal mg/dL (Normal) Labs and/or images reviewed: Labs reviewed by me, Image(s) reviewed by me Assessment/Plan Assessment/Plan GI bleed, likely upper GI History of PUD Easy bruising Elevated PT with normal PTT, possible vitamin K deficiency Rule out gastrinoma Consult GI IV Protonix Trend H&H Vitamin K oral Transfuse if below 7 hemoglobin Liquid diet NPO prior to EGD CT scan abdomen and pelvis Alcohol avoidance Full liquid diet DVT prophylaxis held Plan discussed with: Patient My Orders Orders - CHARBEL KYLE MD Procedure Category Date Status Time Complete Blood Count LAB 01/18/24 Verified 04:00 Comprehensive LAB 01/18/24 Verified Metabolic Panel 04:00 Prothrombin Time W/ LAB 01/18/24 Verified INR 04:00 Partial LAB 01/18/24 Verified Thromboplastin Time 04:00 Ct Ab Pel Wo Con-No CT 01/17/24 Resulted Oral Or Iv 12:02 Date of Service: Jan 17, 2024 Billing Provider: CHARBEL KYLE MD Common Visit Codes: [id number] INP/OBS CARE(HIGH) CHARBEL KYLE MD Jan 17, 2024 14:07
[2024-01-17] MEDS: PHYTONADIONE(VitK) ORAL Susp 10mg/10ml(1mg/ml) PO ONE (16:09)
--- NOTE | 2024-01-17 17:57 | DVHINCON2 ---
Date of service: Jan 17, 2024 Referring Physician Marilyn Block Reason for Consultation UGI Bleed History of Present Illness 33-year-old female presented to the ED with chief complaint of GI bleeding x2 days. Patient states that her stools were black in color, soft in texture. Patient states she also had nausea and vomiting with dark colored coffee-ground emesis. Patient states she did not see any stephanie blood. Patient does mentioned that she drank alcohol this weekend. Patient has been hospitalized 3 times for multiple stomach ulcers, her most recent was in 2020 where they found a large gastric and smaller ulcers on EGD. Patient does not take any home medications for stomach ulcers. Patient denies chest pain, headache, dizziness, diaphoresis, shortness of breath, abdominal pain, fever, or chills endorsed by the patient. Patient was admitted for further evaluation medical management. Past Medical History Past Medical History Anxiety/depression, insomnia, peptic ulcer disease Past Surgical History Past Surgical History EGD 2020 Family History: FH: breast cancer G8 MOTHER FH: leukemia G8 SISTER Allergies: Coded Allergies: NO KNOWN ALLERGIES (Unverified , 12/29/15) Home Meds Active Scripts Nitrofurantoin Monohydrate Mac (Macrobid) 100 Mg Cap, 100 MG PO BID for 7 Days, #14 CAP Prov:FLAQUITO PALENCIA CHEMICAL PROCESS ANALYST 10/05/23 Ferrous Sulfate (Iron) 325 Mg Tab, 325 MG PO MWF, #60 TAB Prov:JOHN HOUGH MD 11/18/20 Sucralfate (CARAFATE SUSP) 1 Gm/10 Ml Ss, 10 ML PO QID, #1200 ML 3 Refills Prov:JOHN HOUGH MD 11/18/20 Pantoprazole Sodium Sesquihydr (Protonix) 40 Mg Tab, 40 MG PO BID, #90 TAB Prov:JOHN HOUGH MD 11/18/20 Reported Medications Paroxetine HCl (Paroxetine Hydrochloride) 30 Mg Tab, 39 MG PO HS 01/16/24 Lamotrigine (Lamotrigine) 100 Mg Tab, 0.5 TAB PO DAILY, #30 TAB 11/16/20 Quetiapine Fumerate (Seroquel) 50 Mg Tab, 0.5 TAB PO HS, #30 TAB 2 Refills 11/16/20 Loratadine (Claritin) 10 Mg Tab, 1 TAB PO PRN, #30 TAB 5 Refills 11/16/20 Paroxetine (PAXIL TABLET) 20 Mg Tb, 1 TAB PO DAILY, #30 TAB 5 Refills 11/16/20 Trazodone Hcl (Trazodone Hcl) 150 Mg Tab, 1 TAB PO HS, #30 TAB 1 Refill 11/16/20 Current Medications Current Medications Medications (Trade) Dose Ordered Sig/Ed Route PRN Reason Start Time Stop Time Status Last Admin Pantoprazole Sodium (Protonix) 40 mg DAILY IV 01/17/24 10:00 01/17/24 08:51 Sucralfate (Carafate Susp) 1 gm QID PO 01/16/24 18:00 01/17/24 17:49 Trazodone HCl (Desyrel) 150 mg HS PO 01/16/24 22:00 01/16/24 21:48 Review of Systems Operative Report DATE OF OPERATION: 11/17/20 PROCEDURE: Upper Endoscopy. PREOPERATIVE INDICATION: The patient is a 30 -year-old female undergoing endoscopy for GI bleeding and melena POSTOPERATIVE DIAGNOSES: 1. She had a large acute 2 to 3 cm prepyloric semicircumferential antral gastric ulcer extending from the 8 to 12 o'clock position; no visible vessel or active bleeding but with inflamed edges 2. 2 to 3 cm sliding-type hiatal hernia with slightly irregular squamocolumnar junction no significant esophagitis PROCEDURE PERFORMED BY: Roseline Rose Vital Signs Vital Signs Date Time Temp Pulse Resp B/P (MAP) Pulse Ox O2 Delivery O2 Flow Rate FiO2 01/17/24 16:49 98.4 89 20 105/59 (74) 99 98.4 01/17/24 08:00 Room Air* 0 21 Physical Exam Alert, oriented x3 PERRLA EOMI Clear breath sounds bilaterally S1-S2 regular rate and rhythm no murmur Abdomen soft nontender, no hepatomegaly Equal strength bilaterally on upper and lower extremities No lower extremity edema Labs/Diagnostic Data Labs Test 01/17/24 05:00 01/16/24 17:58 01/16/24 13:08 01/16/24 09:22 Range/Units White Blood Count 7.9 # 4.4-10.8 10^3/uL Red Blood Count 2.86 L 4.0-5.20 10^6/uL Hemoglobin 8.9 #L 12.2-16.2 g/dL Hematocrit 26.8 #L 36.0-46.0 % Mean Corpuscular Volume 93.6 80.0-100.0 fL Mean Corpuscular Hemoglobin 31.0 28.0-32.0 pg Mean Corpuscular Hemoglobin Concent 33.1 32.0-36.0 g/dL Red Cell Distribution Width 13.3 11.8-14.3 % Platelet Count 233 140-450 10^3/uL Mean Platelet Volume 7.3 6.9-10.8 fL Neutrophils (%) (Auto) 68.7 37.0-80.0 % Lymphocytes (%) (Auto) 23.9 10.0-50.0 % Monocytes (%) (Auto) 4.2 0.0-12.0 % Eosinophils (%) (Auto) 3.0 0.0-7.0 % Basophils (%) (Auto) 0.2 0.0-2.0 % Neutrophils # (Auto) 5.4 1.6-8.6 10 ^3/uL Lymphocytes # (Auto) 1.9 0.4-5.4 10 ^3/uL Monocytes # (Auto) 0.3 0-1.3 10 ^3/uL Eosinophils # (Auto) 0.2 0-0.8 10 ^3/uL Basophils # (Auto) 0 0-0.2 10 ^3/uL Nucleated Red Blood Cells 0.1 % Sodium Level 141 # 136-145 mmol/L Potassium Level 4.3 3.5-5.1 mmol/L Chloride Level 111 H 98-107 mmol/L Carbon Dioxide Level 27 20-31 mmol/L Anion Gap 3 L 5-15 Blood Urea Nitrogen 9 # 9-23 mg/dL Creatinine 0.68 0.550-1.02 mg/dL Glomerular Filtration Rate Calc 117 >90 mL/min BUN/Creatinine Ratio 13.2 10.0-20.0 Serum Glucose 90 74-106 mg/dL Calcium Level 8.2 L 8.7-10.4 mg/dL Urine Color Light-yellow Yellow Urine Clarity Clear Clear Urine pH 5.5 5.0-9.0 Urine Specific [place] 1.021 1.001-1.035 Urine Protein Negative Negative Urine Ketones 2+ H Negative Urine Blood 1+ H Negative /uL Urine Nitrite Negative Negative Urine Bilirubin Negative Negative Urine Urobilinogen Normal Negative mg/dL Urine Leukocyte Esterase Negative Negative /uL Urine RBC 7 0 - 4 /hpf Urine WBC 1 0 - 5 /hpf Urine Squamous Epithelial Cells Few <5 /hpf Urine Bacteria None seen None Seen /hpf Urine Glucose Normal Normal mg/dL Prothrombin Time 12.4 H 9.3-11.8 sec Prothrombin Time INR 1.18 H 0.9-1.15 Activated Partial Thromboplast Time 25.5 24.5-34.5 SEC Magnesium Level 1.9 1.6-2.6 mg/dL Lipase 28 12-53 U/L Total Bilirubin 0.4 0.2-1.0 mg/dL Aspartate Amino Transferase (AST) 35 13-40 U/L Alanine Aminotransferase (ALT) 60 H 7-40 U/L Alkaline Phosphatase 73 46-116 U/L Total Protein 7.9 5.7-8.2 g/dL Albumin 5.0 H 3.2-4.8 g/dL Beta HCG, Quantitative 0.8 L 1.5-4.2 mIU/mL CT SCAN ABD PELVIS IMPRESSION: 1. There is no acute process in the abdomen and pelvis.. Problems(with codes): (1) Coffee ground emesis (2) N&V (nausea and vomiting) (3) GIB (gastrointestinal bleeding) (4) Anemia (5) Abdominal pain Plan/Recommendation Plan Continue to monitor labs If hemoglobin drops below seven we will transfuse 1 unit PRBC IV Protonix 40 mg q.12 hours I will schedule him for an endoscopy on 01/18/2024 Continue clear liquid diet She may benefit from being maintain on a PPI Further recommendations after the above Patient has been counseled about discontinuing alcohol Plan discussed with: Patient ROSELINE ROSE MD Jan 17, 2024 17:57
[2024-01-18] VITALS (8 sets, daily range): BP systolic 94–104; BP diastolic 53–62; PULSE 75–86; RESP 14–20; TEMP 97.9–99.3; O2SAT 94–100
[2024-01-18 07:07] LABS: Basophils # (auto) 0 10 ^3/uL (0-0.2); Basophils % (auto) 0.4 % (0.0-2.0); Eosinophils # (auto) 0.4 10 ^3/uL (0-0.8); Eosinophils % (auto) 5.7 % (0.0-7.0); Hematocrit 26.6 % (36.0-46.0); Hemoglobin 8.9 g/dL (12.2-16.2); Lymphocytes # (auto) 1.5 10 ^3/uL (0.4-5.4); Lymphocytes % (auto) 21.8 % (10.0-50.0); Mean Corpuscular Hemoglobin 31.3 pg (28.0-32.0); Mean Corpuscular Hgb Conc. 33.5 g/dL (32.0-36.0); Mean Corpuscular Volume 93.5 fL (80.0-100.0); Monocytes # (auto) 0.3 10 ^3/uL (0-1.3); Monocytes % (auto) 4.6 % (0.0-12.0); Neutrophils # (auto) 4.7 10 ^3/uL (1.6-8.6); Neutrophils % (auto) 67.5 % (37.0-80.0); Nucleated Red Blood Cells % 0.1 %; Platelet Count (auto) 230 10^3/uL (140-450); Red Blood Cells 2.84 10^6/uL (4.0-5.20); Red Cell Distribution Width 13.4 % (11.8-14.3)
[2024-01-18 07:15] LABS: INR 1.14 (0.9-1.15); Partial Thromboplastin Time 24.5 SEC (24.5-34.5)
[2024-01-18 07:25] LABS: Alanine Aminotransferase 39 U/L (7-40); Albumin 3.8 g/dL (3.2-4.8); Alkaline Phosphatase 53 U/L (46-116); Anion Gap 5 (5-15); Aspartate Aminotransferase 19 U/L (13-40); BUN/Creatinine Ratio 6.5 (10.0-20.0); Blood Urea Nitrogen 5 mg/dL (9-23); Calcium 8.8 mg/dL (8.7-10.4); Carbon Dioxide 27 mmol/L (20-31); Chloride 109 mmol/L (98-107); Glucose 95 mg/dL (74-106); Potassium 3.7 mmol/L (3.5-5.1); Sodium 141 mmol/L (136-145)
[2024-01-18 07:26] LABS: Bilirubin, Total 0.3 mg/dL (0.2-1.0); Total Protein 5.8 g/dL (5.7-8.2)
[2024-01-18] MEDS: PANTOPRAZOLE 40 MG/10 ML VIAL INJ IV SCH (09:30)
[2024-01-18] MEDS ORDERED: FLUMAZENIL 0.1 MG/ML INJ 10ML MDV IV ONE (10:14)
[2024-01-18] MEDS ORDERED: NALOXONE HCL 0.4 MG/ML VIAL ONE (10:14)
[2024-01-18] MEDS ORDERED: SODIUM CHLORIDE LOCK 10 ML ONE (10:14)
[2024-01-18] MEDS: LIDOCAINE VISCOUS 2% 15ML UD ONE (12:09)
[2024-01-18] MEDS: fentaNYL CITRATE 100 MCG/2 ML VL ONE (12:13)
[2024-01-18] MEDS: MIDAZOLAM HCL 5 MG/ML-1ML VIAL ONE (12:13)
[2024-01-18] MEDS: diphenhdrAMINE HCL 50 MG/1 ML VL ONE (12:13)
--- NOTE | 2024-01-18 12:26 | DVHOP2 ---
Operative Report DATE OF OPERATION: 01/18/24 PROCEDURE: Upper Endoscopy with biopsy. PREOPERATIVE INDICATION: The patient is a 33 -year-old female undergoing endoscopy for evaluation of upper GI bleed and history of peptic ulcer disease POSTOPERATIVE DIAGNOSES: 1. Patient had acute pre-pyloric antral gastric ulcer about 1.5-2 cm between the nine in the 11 o'clock position, biopsies were obtained from the edge of the ulcers 2. Mild gastroduodenitis otherwise normal examination up to the 2nd and 3rd part of the duodenal with no active bleeding no fresh or old blood in the GI tract PROCEDURE PERFORMED BY: Roseline Rose GI NURSE: Tram SCOPE: Olympus videoendoscope. ASA CLASS: 2. PREOPERATIVE MEDICATIONS: Versed 4 mg, Fentanyl 100 mcg, Benadryl 50 mg I administered moderate sedation throughout this _7_ minutes procedure. An independent trained observer pushed medications at my direction, and monitored the patient's level of consciousness and physiological status throughout. PROCEDURE IN DETAIL: After obtaining an informed consent, the patient was placed on left lateral decubitus position. The patient was then sedated with the above medications. A bite block was placed between her teeth. The endoscope was then passed through the oropharynx, into the esophagus, and through the stomach and pylorus up to the second and third part of the duodenum. The endoscope was then withdrawn. The 2nd and 3rd part of the duodenum were normal and the duodenal bulb showed minimal duodenitis. Duodenal biopsies were obtained. There was an acute pre-pyloric antral gastric ulcers about 1.5-2 cm in size between the nine and 11 o'clock position with some surrounding hyperemia erythema. Biopsies were obtained from the edges of the ulcer and from the antrum and mild increase oozing was noted from biopsy sites Otherwise there was no fresh or old blood in the stomach or the upper GI tract. On retroflexion the fundus and cardia were normal. The endoscope was then withdrawn into the distal esophagus where the patient had a slightly irregular squamocolumnar junction but no significant erosive esophagitis The remaining distal and proximal esophagus and oropharynx were unremarkable The patient tolerated the procedure well without difficulty. COMPLICATIONS : None SPECIMENS: Duodenal biopsies Gastric biopsies DISPOSITION: Transfer back to the floor Stable PLAN: 1. Await for biopsy result 2. Will place pt on Protonix 40 mg bid 3. Carafate suspension 1 g p.o. 4 times a day 4. DC aspirin NSAIDs smoking alcohol and spicy foods 5. Start with full liquid diet advance as tolerated 6. Outpatient follow up with me in 4-6 weeks to review results and discuss further management ROSELINE ROSE MD Jan 18, 2024 12:26
[2024-01-18] MEDS: ACETAMINOPHEN 325 MG TAB PO ONE (13:42)
--- NOTE | 2024-01-18 14:24 | DVHDS2 ---
Discharge Summary Date of Admission Jan 16, 2024 at 15:43 Date of Discharge: Jan 18, 2024 Labs/Diagnostic Data: Laboratory Results Test 01/18/24 06:05 01/16/24 17:58 01/16/24 13:08 01/16/24 09:22 White Blood Count 7.0 10^3/uL (4.4-10.8) Red Blood Count 2.84 10^6/uL (4.0-5.20) Hemoglobin 8.9 g/dL (12.2-16.2) Hematocrit 26.6 % (36.0-46.0) Mean Corpuscular Volume 93.5 fL (80.0-100.0) Mean Corpuscular Hemoglobin 31.3 pg (28.0-32.0) Mean Corpuscular Hemoglobin Concent 33.5 g/dL (32.0-36.0) Red Cell Distribution Width 13.4 % (11.8-14.3) Platelet Count 230 10^3/uL (140-450) Mean Platelet Volume 7.4 fL (6.9-10.8) Neutrophils (%) (Auto) 67.5 % (37.0-80.0) Lymphocytes (%) (Auto) 21.8 % (10.0-50.0) Monocytes (%) (Auto) 4.6 % (0.0-12.0) Eosinophils (%) (Auto) 5.7 % (0.0-7.0) Basophils (%) (Auto) 0.4 % (0.0-2.0) Neutrophils # (Auto) 4.7 10 ^3/uL (1.6-8.6) Lymphocytes # (Auto) 1.5 10 ^3/uL (0.4-5.4) Monocytes # (Auto) 0.3 10 ^3/uL (0-1.3) Eosinophils # (Auto) 0.4 10 ^3/uL (0-0.8) Basophils # (Auto) 0 10 ^3/uL (0-0.2) Nucleated Red Blood Cells 0.1 % Prothrombin Time 12.0 sec (9.3-11.8) Prothrombin Time INR 1.14 (0.9-1.15) Activated Partial Thromboplast Time 24.5 SEC (24.5-34.5) Sodium Level 141 mmol/L (136-145) Potassium Level 3.7 mmol/L (3.5-5.1) Chloride Level 109 mmol/L (98-107) Carbon Dioxide Level 27 mmol/L (20-31) Anion Gap 5 (5-15) Blood Urea Nitrogen 5 mg/dL (9-23) Creatinine 0.77 mg/dL (0.550-1.02) Glomerular Filtration Rate Calc 104 mL/min (>90) BUN/Creatinine Ratio 6.5 (10.0-20.0) Serum Glucose 95 mg/dL (74-106) Calcium Level 8.8 mg/dL (8.7-10.4) Total Bilirubin 0.3 mg/dL (0.2-1.0) Aspartate Amino Transferase (AST) 19 U/L (13-40) Alanine Aminotransferase (ALT) 39 U/L (7-40) Alkaline Phosphatase 53 U/L (46-116) Total Protein 5.8 g/dL (5.7-8.2) Albumin 3.8 g/dL (3.2-4.8) Urine Color Light-yellow (Yellow) Urine Clarity Clear (Clear) Urine pH 5.5 (5.0-9.0) Urine Specific [place] 1.021 (1.001-1.035) Urine Protein Negative (Negative) Urine Ketones 2+ (Negative) Urine Blood 1+ /uL (Negative) Urine Nitrite Negative (Negative) Urine Bilirubin Negative (Negative) Urine Urobilinogen Normal mg/dL (Negative) Urine Leukocyte Esterase Negative /uL (Negative) Urine RBC 7 /hpf (0 - 4) Urine WBC 1 /hpf (0 - 5) Urine Squamous Epithelial Cells Few /hpf (<5) Urine Bacteria None seen /hpf (None Seen) Urine Glucose Normal mg/dL (Normal) Magnesium Level 1.9 mg/dL (1.6-2.6) Lipase 28 U/L (12-53) Beta HCG, Quantitative 0.8 mIU/mL (1.5-4.2) Other Laboratory Tests 01/18/24 06:05 Brief Hx & Hospital Course: 33-year-old female with prior multiple PUD and EGD in 2020 admitted for likely upper GI bleed. Patient was scoped today, found to have ulcers. Last episode of pod likely associated with alcohol use. Patient reported binge drinking prior to having symptoms. Advised patient on alcohol cessation. Workup for Carleen Davies syndrome CT scan within normal limits. Patient to follow up with GI as outpatient. Condition at Discharge: Good Final Diagnosis/Problems List Gastric ulcer causing upper GI bleed Alcohol use Discharge Disposition: Home Discharge Instruct/Medications Diet: Regular Activity: No Restrictions, As Tolerated Follow Up/Referral: Follow up with in 4-6 weeks Follow up with your primary care 32 Discharge Statement: "Patient was advised to return to the ER or call 911 if any headaches, dizziness, shortness of breath, chest pain, abdominal pain, bleeding, fevers, or worsening of medical condition. Patient was counseled about treatment plan, medications, possible side effects, patientverbalized understanding. All questions were answered to the best of my ability. This discharge took greater then 30 minutes in planning, reviewing documentation, counseling the patient, and discussing with other team members." ASSESSMENT ASSESSMENT Assessment Gastric ulcer causing upper GI bleed Gastroduodenitis Alcohol use disorder Date of Service: Jan 18, 2024 Billing Provider: CHARBEL KYLE MD Common Visit Codes: 63383-PYE/OBS DISCH DAY >30min Secondary Visit Codes: 56533-[id number] COUNSELING IND CHARBEL KYLE MD Jan 18, 2024 14:24
[2024-01-18] MEDS ORDERED: PANT40TA2 PO (14:25)
[2024-01-18] MEDS ORDERED: SUCR1SUS26 PO (14:25)
== END 2024-01-18 18:20 | disposition home or self-care (01) | DRG 379 ==
LOC: ER 08:52 → OVERFLOW 15:43 → CENTRAL 20:54
PROVIDERS: ADMIT Registered Nurse General Practice; ATTEND Student in an Organized Health Care Education/Training Program
PROC: 0DB68ZX Excision of Stomach, Via Natural or Artificial Opening Endoscopic, Diagnostic (ICD-10-PCS; 2024-01-18)
PROC: 0DB98ZX Excision of Duodenum, Via Natural or Artificial Opening Endoscopic, Diagnostic (ICD-10-PCS; principal; 2024-01-18 12:00)
DX: K25.4 Chronic or unspecified gastric ulcer with hemorrhage (principal); K29.90 Gastroduodenitis, unspecified, without bleeding; D64.9 Anemia, unspecified; F32.A Depression, unspecified; F41.9 Anxiety disorder, unspecified; F10.90 Alcohol use, unspecified, uncomplicated; Y90.9 Presence of alcohol in blood, level not specified; G47.00 Insomnia, unspecified; J45.909 Unspecified asthma, uncomplicated; Z87.11 Personal history of peptic ulcer disease; Z80.6 Family history of leukemia; Z80.3 Family history of malignant neoplasm of breast
CPT/HCPCS: 36415; 43239; 71046; 74176; 80048; 80053; 81001; 83690; 83735; 84702; 85025; 85610; 85730; 93005; 96374; G0378; J2250; J2405; J2470